=== PATIENT | male | born 1985 | race Caucasian/White ===

== ENCOUNTER 2021-07-02 17:52 | Emergency (ER) | payer OTHER ==
[~2021-07-02] VITALS: Ht 182.9 cm; Wt 90.0 kg
--- NOTE | 2021-07-02 19:56 | PHYS DOC ---
Past History Past Surgical History Right Shoulder Surgery a month ago Adult General Chief Complaint Chief Complaint: WITHDRAWAL HPI HPI Patient is a 36 year old male who presents with potential withdrawal from OxyContin. He had shoulder surgery a month ago for which he has been doing well and has even started physical therapy. The wounds have healed and there is no significant pain associated with it. Patient is here today as he feels he is having withdrawal from oxycodone. He initially was taking 4 times a day then in the middle of the month 3 times a day and as of last week 2 times a day. He stopped taking it 2 days ago and now feels a bit anxious. He denies significant pain, nausea, vomiting, visual disturbance, difficulty ambulating. He is able to tolerate normal diet. His primary care physician is not available this evening and thus presents to emergency department for further options. He has no suicidal ideation or violent thoughts. He denies use of alcohol. He has no other complaints. Review of Systems Review of Systems Constitutional: Denies fever or chills Eyes: Denies change in visual acuity, redness, or eye pain HENT: Denies nasal congestion or sore throat Respiratory: Denies cough or shortness of breath Cardiovascular: No additional information not addressed in HPI GI: Denies abdominal pain, nausea, vomiting, bloody stools or diarrhea : Denies dysuria or hematuria Musculoskeletal: Denies back pain or joint pain. Right shoulder laparoscopic surgical incisions are all well-healed and he has normal range of motion. There is no palpable tenderness. Rest of the arm examination is negative. Integument: Denies rash or skin lesions Neurologic: Denies headache, focal weakness or sensory changes Endocrine: Denies polyuria or polydipsia All other systems were reviewed and found to be within normal limits, except as documented in this note. Physical Exam Physical Exam Constitutional: Well developed, well nourished, no acute distress, non-toxic appearance. [] HENT: Normocephalic, atraumatic, bilateral external ears normal, oropharynx moist, no oral exudates, nose normal. [] Eyes: PERRLA, EOMI, conjunctiva normal, no discharge. [] Neck: Normal range of motion, no tenderness, supple, no stridor. [] Cardiovascular:Heart rate regular rhythm, no murmur [] Lungs & Thorax: Bilateral breath sounds clear to auscultation [] Abdomen: Bowel sounds normal, soft, no tenderness, no masses, no pulsatile masses. [] Skin: Warm, dry, no erythema, no rash. [] Back: No tenderness, no CVA tenderness. [] Extremities: No tenderness, no cyanosis, no clubbing, ROM intact, no edema. [] Neurologic: Alert and oriented X 3, normal motor function, normal sensory function, no focal deficits noted. [] Psychologic: Affect normal, judgement normal, mood normal. [] EKG EKG [] Radiology/Procedures Radiology/Procedures [] Heart Score C/O Chest Pain: No Risk Factors: Risk Factors: DM, Current or recent (<one month) smoker, HTN, HLP, family history of CAD, obesity. Risk Scores: Risk Factors: DM, Current or recent (<one month) smoker, HTN, HLP, family history of CAD, obesity. Course & Med Decision Making Course & Med Decision Making Pertinent Labs and Imaging studies reviewed. (See chart for details) Patient presented mainly for feeling anxious after stopping oxycodone 48 hours ago. He is hemodynamically and clinically stable. I discussed various option and we both agreed the best option would be to take small dose of Xanax for his anxiety. He is going to also see his physician in the next 24 to 48 hours for further follow-up. I am prescribing total of 15 tablets of Xanax to be taken 3 times a day as needed the first couple of days and then taper down. Again, patient understands the importance of seeing his physician and further discussing option if he continues to feel he has withdrawal. Dragon Disclaimer Dragon Disclaimer This electronic medical record was generated, in whole or in part, using a voice recognition dictation system. Departure Departure: Impression: Primary Impression: Opiate withdrawal Disposition: HOME / SELF CARE / HOMELESS Condition: STABLE Referrals: YAS BUSTAMANTE (PCP) Please call your doctor in the next 24 to 48 hours for further follow-up. If you start having severe symptoms such as diaphoresis, difficulty breathing, nausea or vomiting, please come back to emerge Patient Instructions: Opiate Dependence MAGGI DELATORRE MD Jul 02, 2021 19:56
[2021-07-02] MEDS ORDERED: ALPR0.25 PO ×3 (20:04→20:12)
[2021-07-02 21:18] VITALS: BP 121/79
[2021-07-02] MEDS ORDERED: ALPRAZolam 0.25 MG TABLET ONE (21:18)
[2021-07-02] MEDS ORDERED: ALPRAZolam 0.25 MG TABLET PO ONE (21:30)
== END 2021-07-02 21:27 | disposition home or self-care (01) ==
LOC: ER 17:52
DX: F11.23 Opioid dependence with withdrawal (principal)
CPT/HCPCS: 99283